=== PATIENT | female | born 1970 | race Caucasian/White ===

== ENCOUNTER 2017-08-04 21:45 | Observation (INO) | payer OTHER ==
[2017-08-04] MEDS ORDERED: morphine CARPU-JECT 2 MG/1 ML DISP.SYRIN IVPUSH ONE (22:05)
[2017-08-04] MEDS ORDERED: ONDANSETRON 4 MG/2 ML VIAL IVPUSH STA (22:06)
--- NOTE | 2017-08-04 22:06 | PDOC ---
History of Present Illness - General History Source: Patient Exam Limitations: No Limitations - History of Present Illness Initial Comments: 08/04/17 22:34 The patient is a 46-year-old female, with a significant past medical history of HTN, who presents to the ED with pain in her left leg today. The patient states that she has chronic pain issues with her legs for which she has gone to her doctor to get X-Rays and cortisone shots with little relief of her symptoms. Today, the patient was walking up the stairs to her apartment on the 3rd floor and during her last few steps she lost her balance, having to forcefully holding on to the banister. Subsequently, the patient felt a pop in her left knee. The pain is a 10/10; she is experiencing pain to move her left leg and knee. The patient denies having any other injuries or symptoms. <Cuca Bonilla - Last Filed: 08/04/17 22:34> - General History Source: Patient <Joey Lynn - Last Filed: 08/05/17 01:42> <Brigette Chatterjee - Last Filed: 08/05/17 03:21> - General Chief Complaint: Pain, Acute Stated Complaint: KNEE PAIN Time Seen by Provider: 08/04/17 21:59 Past History <Cuca Bonilla - Last Filed: 08/04/17 22:34> - Past Medical History Asthma: Yes - Suicide/Smoking/Psychosocial Hx Smoking Status: No Smoking History: Never smoked Number of Cigarettes Smoked Daily: 0 Hx Alcohol Use: No Drug/Substance Use Hx: No <Joey Lynn - Last Filed: 08/05/17 01:42> <Brigette Chatterjee - Last Filed: 08/05/17 03:21> - Past Medical History Allergies/Adverse Reactions: Allergies Allergy/AdvReac Type Severity Reaction Status Date / Time shellfish derived Allergy Verified 08/04/17 22:09 Home Medications: Ambulatory Orders NK [No Known Home Medication] 08/05/17 Review of Systems - Review of Systems Able to Perform ROS?: Yes Comments:: 08/04/17 22:35 CONSTITUTIONAL: Absent: fever, no chills, no fatigue EYES: Absent: visual changes ENT: Absent: ear pain, no sore throat CARDIOVASCULAR: Absent: chest pain, no palpitations RESPIRATORY: Absent: cough, no SOB GI: Absent: abdominal pain, no nausea, no vomiting, no constipation, no diarrhea GENITOURINARY: Absent: dysuria, no frequency, no hematuria MUSKULOSKELETAL: Absent: back pain, no arthralgia EXTREMITIES: Present: (+)Left leg and left knee pain. SKIN: Absent: rash NEURO: Absent: headache <Damaso Bonillaie - Last Filed: 08/04/17 22:34> *Physical Exam - Vital Signs Last Vital Signs Temp Pulse Resp BP Pulse Ox 97.7 F 79 22 117/82 98 08/04/17 22:02 08/04/17 22:02 08/04/17 22:02 08/04/17 22:02 08/04/17 22:02 - Physical Exam Comments: 08/04/17 22:36 GENERAL: Well-appearing, well-nourished. No apparent distress. HEENT: Normocephalic, atraumatic. PERRL, EOM intact. CARDIOVASCULAR: Normal S1, S2. Regular rate and rhythm. PULMONARY: Clear to auscultation bilaterally. ABDOMEN: Soft, non-distended, non-tender. EXTREMITIES: (+)Left knee is slightly tender and more swollen than the right. Decreased range of motion. No joint deformity SKIN: Warm, dry. No rash NEUROLOGICAL: No focal neurological deficits. <Cuca Bonilla - Last Filed: 08/04/17 22:34> - Vital Signs Last Vital Signs Temp Pulse Resp BP Pulse Ox 97.7 F 79 22 117/82 98 08/04/17 22:02 08/04/17 22:02 08/04/17 22:02 08/04/17 22:02 08/04/17 22:02 <Brigette Chatterjee - Last Filed: 08/05/17 03:21> Heart Score/ECG Review - ECG Impressions Comment:: EKG was reviewed by Dr. Lynn at 3:20. Impression: Normal sinus rhythm at 68 bpm. Normal sinus rhythm. Low Voltage QRS. Borderline ECG. <Brigette Chatterjee - Last Filed: 08/05/17 03:21> ED Treatment Course - LABORATORY CBC & Chemistry Diagram: 08/04/17 22:45 08/04/17 22:45 <Joey Lynn - Last Filed: 08/05/17 01:42> - LABORATORY CBC & Chemistry Diagram: 08/04/17 22:45 08/04/17 22:45 - ADDITIONAL ORDERS Additional order review: Laboratory Results 08/04/17 08/04/17 22:45 22:45 Sodium 139 Potassium 3.5 Chloride 103 Carbon Dioxide 24 Anion Gap 12 BUN 24 H Creatinine 0.9 Creat Clearance w eGFR > 60 Random Glucose 104 Calcium 9.4 Magnesium 1.9 Total Bilirubin 0.4 AST 12 L ALT 18 Alkaline Phosphatase 96 Total Protein 7.8 Albumin 3.9 Serum , Qual Negative 08/04/17 22:45 RBC 4.52 MCV 84.1 MCHC 34.4 RDW 13.2 MPV 9.0 Neutrophils % 71.6 Lymphocytes % 20.4 D Monocytes % 5.7 Eosinophils % 1.5 Basophils % 0.8 - Medications Given in the ED: ED Medications Discontinued Medications Generic Name Dose Route Start Last Admin Trade Name Amaury PRN Reason Stop Dose Admin Acetaminophen 650 mg 08/05/17 00:18 08/05/17 00:18 Tylenol Oral Solution - PO 08/05/17 00:19 650 mg NOW ONE Administration Morphine Sulfate 2 mg 08/04/17 22:05 08/04/17 22:39 Morphine Injection - IVPUSH 08/04/17 22:06 2 mg ONCE ONE Administration Morphine Sulfate 6 mg 08/05/17 00:33 08/05/17 00:43 Morphine Injection - IVPUSH 08/05/17 00:34 6 mg ONCE ONE Administration Ondansetron HCl 4 mg 08/04/17 22:06 08/04/17 22:39 Zofran Injection IVPUSH 08/04/17 22:07 4 mg ONCE STA Administration <Brigette Chatterjee - Last Filed: 08/05/17 03:21> Medical Decision Making - Medical Decision Making 08/05/17 01:42 Dr. Lynn: The scribe's documentation has been prepared under my direction and personally reviewed by me in its entirery. I confirm that the note above accurately reflects all work, treatment, procedures, and medical decision making performed by me. patient with intractable knee pain. Pt unable to walk. Will admit for pain control <Joey Lynn - Last Filed: 08/05/17 01:42> *DC/Admit/Observation/Transfer - Attestations Scribe Attestion: 08/04/17 22:37 Documentation prepared by Cuca Bonilla, acting as medical translator for Joey Lynn MD. <Cuca Bonilla - Last Filed: 08/04/17 22:34> - Discharge Dispostion Admit: Yes <Joey Lynn - Last Filed: 08/05/17 01:42> <Brigette Chatterjee - Last Filed: 08/05/17 03:21> Diagnosis at time of Disposition: Intractable pain Knee sprain and strain Qualifiers: Encounter type: subsequent encounter Laterality: left - Discharge Dispostion Condition at time of disposition: Stable
[2017-08-04 22:14] VITALS: BMI 52.1
[2017-08-04] MEDS ORDERED: morphine SULFATE 4 MG/ML VIAL ONE (22:27)
[2017-08-04] MEDS ORDERED: ONDANSETRON 4 MG/2 ML VIAL ONE (22:27)
[2017-08-04 23:13] LABS: BASO % 0.8 % (0-2.0); EOS % 1.5 % (0-4.5); HEMOGLOBIN 13.1 GM/dL (10.7-15.3); LYMPH % 20.4 % (8-40); MCHC 34.4 g/dl (32.0-36.0); MEAN CELL VOLUME 84.1 fl (80-96); MONO % 5.7 % (3.8-10.2); NEUT % 71.6 % (42.8-82.8); PLATELET COUNT 375 K/MM3 (134-434); RBC 4.52 M/mm3 (3.60-5.2); RDW 13.2 % (11.6-15.6); WHITE BLOOD COUNT 13.4 K/mm3 (4.0-10.0)
[2017-08-04 23:26] LABS: ALBUMIN 3.9 g/dl (3.4-5.0); ALK PHOS 96 U/L (45-117); ANION GAP 12 (8-16); BILIRUBIN,TOTAL 0.4 mg/dL (0.2-1.0); BLOOD UREA NITROGEN 24 mg/dL (7-18); CALCIUM 9.4 mg/dL (8.5-10.1); CHLORIDE 103 mmol/L (98-107); CO2 24 mmol/L (21-32); CREATININE 0.9 mg/dL (0.55-1.02); GLUCOSE,RANDOM 104 mg/dL (74-106); MAGNESIUM 1.9 mg/dL (1.8-2.4); POTASSIUM 3.5 mmol/L (3.5-5.1); SGOT/AST 12 U/L (15-37); SGPT/ALT 18 U/L (12-78); SODIUM 139 mmol/L (136-145); TOT PROT 7.8 g/dl (6.4-8.2)
[2017-08-04] MEDS ORDERED: ACETAMINOPHEN 325 MG TABLET (FP) ONE (23:53)
[2017-08-05] MEDS ORDERED: ACETAMINOPHEN 650 MG/20.3 ML ORAL SOLUTION (CUPS) PO ONE (00:18)
[2017-08-05] MEDS ORDERED: morphine CARPU-JECT 2 MG/1 ML DISP.SYRIN IVPUSH ONE (00:33)
[2017-08-05] MEDS ORDERED: morphine SULFATE 4 MG/ML VIAL ONE (00:37)
--- NOTE | 2017-08-05 02:14 | HP ---
CHIEF COMPLAINT: s/p fall, L- Knee Pain PCP: Dr. Sunil Titus HISTORY OF PRESENT ILLNESS: 46 y/o woman PMH HTN, Chronic Pain, L- knee Pain (receives injections), Severe Obesity. Who presents to the ED s/p fall with left knee pain. Patient's daughter at bedside Patient reports recent cortisone injection to her left knee for chronic pain. She reports while going up the stairs she fell onto her knee. Patient reports hearing a "popping sound". Patient reports having increased pain to the patellar with movement. Patient denies LOC, head trauma. Patient denies fever, chills, cough, dizziness, HAQUE, SOB, CP, AP, N/V/D, constipation, dysuria ER course was notable for: (1) Xray L-Knee- neg fx or dislocation (2) CT B/L Knees: mild patellofemoral arthrosis, no acute fracture or dislocation. tiny R- knee effusion, small L- knee effusion (3) WBC 13.4 Recent Travel: None PAST MEDICAL HISTORY: See HPI PAST SURGICAL HISTORY: Childbirth Social History: Smoking: Never Alcohol: None Drugs: None Lives alone Family History: Mother Asthma, age 49 Sister: Lung Disease, Sister: ESRD Allergies shellfish derived Allergy (Verified 08/04/17 22:09) HOME MEDICATIONS: Home Medications Medication Instructions Recorded No Home Medications 0 dose .ROUTE UTDICT 01/11/12 Pantoprazole Sodium [Protonix -] 40 mg PO DAILY #0 tablet.ec 05/17/12 Naproxen [Naprosyn -] 500 mg PO BID #14 tablet 12/27/14 REVIEW OF SYSTEMS CONSTITUTIONAL: Absent: fever, chills, diaphoresis, generalized weakness, malaise, loss of appetite, weight change HEENT: Absent: rhinorrhea, nasal congestion, throat pain, throat swelling, difficulty swallowing, mouth swelling, ear pain, eye pain, visual changes CARDIOVASCULAR: Absent: chest pain, syncope, palpitations, irregular heart rate, lightheadedness , peripheral edema RESPIRATORY: Absent: cough, shortness of breath, dyspnea with exertion, orthopnea, wheezing, stridor, hemoptysis GASTROINTESTINAL: Absent: abdominal pain, abdominal distension, nausea, vomiting, diarrhea, constipation, melena, hematochezia GENITOURINARY: Absent: dysuria, frequency, urgency, hesitancy, hematuria, flank pain, genital pain MUSCULOSKELETAL: myalgia, arthralgia, joint swelling, Absent: back pain, neck pain SKIN: Absent: rash, itching, pallor HEMATOLOGIC/IMMUNOLOGIC: Absent: easy bleeding, easy bruising, lymphadenopathy, frequent infections ENDOCRINE: Absent: unexplained weight gain, unexplained weight loss, heat intolerance, cold intolerance NEUROLOGIC: unsteady gait Absent: headache, focal weakness or paresthesias, dizziness, seizure, mental status changes, bladder or bowel incontinence PSYCHIATRIC: Absent: anxiety, depression, suicidal or homicidal ideation, hallucinations. PHYSICAL EXAMINATION Vital Signs - 24 hr 08/04/17 22:02 Temperature 97.7 F Pulse Rate 79 Respiratory 22 Rate Blood Pressure 117/82 O2 Sat by Pulse 98 Oximetry (%) GENERAL: Severely Obese, awake, alert, and fully oriented, in mild distress. HEAD: Normal with no signs of trauma. EYES: Pupils equal, round and reactive to light, extraocular movements intact, sclera anicteric, conjunctiva clear. No lid lag. EARS, NOSE, THROAT: Ears normal, nares patent, oropharynx clear without exudates. Moist mucous membranes. NECK: Normal range of motion, supple without lymphadenopathy, JVD, or masses. LUNGS: Breath sounds equal, clear to auscultation bilaterally. No wheezes, and no crackles. No accessory muscle use. HEART: Regular rate and rhythm, normal S1 and S2 without murmur, rub or gallop. ABDOMEN: Soft, nontender, not distended, normoactive bowel sounds, no guarding, no rebound, no masses. No hepatomegaly or splenomegaly. MUSCULOSKELETAL:+tenderness, swelling to L- patella. LROM LLE. Normal range of motion LUE, RUE, RLE joints. No bony deformities, No CVA tenderness. UPPER EXTREMITIES: 2+ pulses, warm, well-perfused. No cyanosis. No clubbing. No peripheral edema. LOWER EXTREMITIES: 2+ pulses, warm, well-perfused. No calf tenderness. No peripheral edema. NEUROLOGICAL: Cranial nerves II-XII intact. Normal speech. Gait not observed PSYCHIATRIC: Cooperative. Good eye contact. Appropriate mood and affect. SKIN: Warm, dry, normal turgor, no rashes or lesions noted, normal capillary refill. Laboratory Results - last 24 hr 08/04/17 08/04/17 08/04/17 22:45 22:45 22:45 WBC 13.4 H D RBC 4.52 Hgb 13.1 Hct 38.0 MCV 84.1 MCH 29.0 MCHC 34.4 RDW 13.2 Plt Count 375 MPV 9.0 Neutrophils % 71.6 Lymphocytes % 20.4 D Monocytes % 5.7 Eosinophils % 1.5 Basophils % 0.8 Sodium 139 Potassium 3.5 Chloride 103 Carbon Dioxide 24 Anion Gap 12 BUN 24 H Creatinine 0.9 Creat Clearance w eGFR > 60 Random Glucose 104 Calcium 9.4 Magnesium 1.9 Total Bilirubin 0.4 AST 12 L ALT 18 Alkaline Phosphatase 96 Total Protein 7.8 Albumin 3.9 Serum , Qual Negative ASSESSMENT/PLAN: 46 y/o woman PMH of HTN, Chronic Pain, Severe Obesity. Placed in Observation for Intractable L-Knee Pain Plan: 1. Ortho: Left Knee Pain/Swelling - s/p fall - Xray read no acute fx, dislocation - Appreciate Ortho Consult - Pain Mgmt - knee immobilizer - Elevate extremity - Ice q20min on/off - PT - Social Work consult- pt lives in 3rd floor walkup- non-weight bearing - Consider STR 2. Leukocytosis - Likely secondary to inflammatory response, low suspicion of infection - Pt is afebrile, does not appear toxic 3. Hypertension - stable - Continue home med - Monitor renal function 4. Severe Obesity - Carb Control - FU with Endocrinogy/RD outpatient 5. DVT ppx - SCDs - Consider AC if LOS > 48 hrs Code Status: Full Code Dispo: Observation Problem List - Problem (1) Intractable pain Code(s): R52 - PAIN, UNSPECIFIED (2) Knee sprain and strain Code(s): S83.90XA - SPRAIN OF UNSPECIFIED SITE OF UNSPECIFIED KNEE, INIT ENCNTR Qualifiers: Encounter type: subsequent encounter Laterality: left (3) Severe obesity (BMI >= 40) Code(s): E66.01 - MORBID (SEVERE) OBESITY DUE TO EXCESS CALORIES (4) HTN (hypertension) Code(s): I10 - ESSENTIAL (PRIMARY) HYPERTENSION (5) DVT prophylaxis Code(s): IUX9025 - Visit type - Emergency Visit Emergency Visit: Yes ED Registration Date: 08/04/17 Care time: The patient presented to the Emergency Department on the above date and was hospitalized for further evaluation of their emergent condition. - New Patient This patient is new to me today: Yes Date on this admission: 08/05/17 - Critical Care Critical Care patient: No Hospitalist Screening - Colonoscopy Questionnaire Colonoscopy Questionnaire: Colonoscopy Questionnaire - Patient: 50 - 75 years old and never had a screening colonoscopy: No History of colon or rectal polyps, or CA: No History of IBD, Crohn's disease or UC: No History of abdominal radiation therapy as a child: No - Relative: 1 with colon or rectal CA, or polyps at age 60 or younger: No Colon or rectal CA diagnosed at age 45 or younger: No Multiple relatives with colon or rectal CA: No - Outcome: Screening Result: Negative Screen
[2017-08-05] MEDS: KETOROLAC TROMETHAMINE 30 MG/1 ML VIAL IVPUSH PRN ×2 (02:58→09:11)
[2017-08-05 06:55] VITALS: BP 105/62; PULSE 74; TEMP 98.4
[2017-08-05] MEDS ORDERED: ONDANSETRON 4 MG/2 ML VIAL IVPUSH PRN (08:48)
[2017-08-05] MEDS ORDERED: ONDANSETRON 4 MG/2 ML VIAL ONE (09:15)
[2017-08-05 09:46] LABS: BASO % 1.1 % (0-2.0); EOS % 0.9 % (0-4.5); HEMATOCRIT 35.6 % (32.4-45.2); LYMPH % 20.7 % (8-40); MCH 28.4 pg (25.7-33.7); MCHC 33.8 g/dl (32.0-36.0); MEAN PLT VOLUME 8.6 fl (7.5-11.1); MONO % 5.1 % (3.8-10.2); NEUT % 72.2 % (42.8-82.8); PLATELET COUNT 357 K/MM3 (134-434); RBC 4.24 M/mm3 (3.60-5.2); RDW 13.5 % (11.6-15.6); WHITE BLOOD COUNT 11.1 K/mm3 (4.0-10.0)
[2017-08-05] MEDS ORDERED: LISINOPRIL 20 MG TABLET (FP) PO SCH (10:00)
[2017-08-05] MEDS ORDERED: HYDROCHLOROTHIAZIDE 25 MG TABLET (FP) PO SCH ×2 (10:00)
[2017-08-05 10:13] LABS: ANION GAP 6 (8-16); BLOOD UREA NITROGEN 25 mg/dL (7-18); CALCIUM 8.9 mg/dL (8.5-10.1); CHLORIDE 106 mmol/L (98-107); CO2 27 mmol/L (21-32); CREATININE 0.8 mg/dL (0.55-1.02); GLUCOSE,RANDOM 114 mg/dL (74-106); POTASSIUM 4.1 mmol/L (3.5-5.1); SODIUM 139 mmol/L (136-145)
[2017-08-05] MEDS ORDERED: PANTOPRAZOLE 40 MG TABLET (FP) PO SCH (10:15)
[2017-08-05] MEDS ORDERED: PANTOPRAZOLE 40 MG TABLET (FP) ONE (10:22)
--- NOTE | 2017-08-05 11:22 | EKG ---
Test Reason : Blood Pressure : / mmHG Vent. Rate : 068 BPM Atrial Rate : 068 BPM P-R Int : 132 ms QRS Dur : 076 ms QT Int : 388 ms P-R-T Axes : -05 058 041 degrees QTc Int : 412 ms NORMAL SINUS RHYTHM LOW VOLTAGE QRS BORDERLINE ECG WHEN COMPARED WITH ECG OF 12-MAY-2012 09:31, NO SIGNIFICANT CHANGE WAS FOUND Confirmed by ED STODDARD MD ([id number]) on 08/05/2017 11:21:50 AM Referred By: Confirmed By:ED STODDARD MD
--- NOTE | 2017-08-05 11:45 | CON.ORTH ---
Consult Reason for Consultation:: left knee pain - Past Medical History ...LMP: 04/23/12 - Alcohol/Substance Use Hx Alcohol Use: No - Smoking History Smoking history: Never smoked Have you smoked in the past 12 months: No Aproximately how many cigarettes per day: 0 Home Medications - Allergies Allergies/Adverse Reactions: Allergies Allergy/AdvReac Type Severity Reaction Status Date / Time shellfish derived Allergy Verified 08/04/17 22:09 - Home Medications Home Medications: Ambulatory Orders Hydrochlorothiazide [Hctz -] 25 mg PO DAILY 08/05/17 Lisinopril [Prinivil -] 40 mg PO DAILY 08/05/17 Physical Exam for Ortho Vital Signs: Vital Signs Temperature 98.4 F 08/05/17 06:54 Pulse Rate 74 08/05/17 06:54 Respiratory Rate 18 08/05/17 06:54 Blood Pressure 105/62 08/05/17 06:54 O2 Sat by Pulse Oximetry (%) 98 08/05/17 06:54 Labs: CBC, BMP 08/05/17 09:36 08/05/17 09:36 - Lower Extremity Knee: Yes: Left, Limited ROM, Pain, Other (+ ttp, ROm 0-50, able to SLR, nvi) Imaging - Results X-ray: Report Reviewed, Image Reviewed Cat Scan: Report Reviewed, Image Reviewed Assessment/Plan 46 y/o woman PMH HTN,morbid obesity c/o L- knee Pain for the past 3 weeks. Presented to the ED s/p fall with left knee pain. Patient's daughter at bedside Patient reports recent cortisone injection to her left knee for chronic pain. She reports while going up the stairs she fell onto her knee. Patient reports hearing a "popping sound". Patient had cortisone injection done 1 day ago. a/p left knee djd- no fx/dislocations Cortisone injection takes 3-4 days to take effect, sometimes pain can be worse for first few days wbat with knee immobilizer in place PT eval ice, elevation pain control nothing further to do d/w Dr. Vera
--- NOTE | 2017-08-05 13:35 | DS ---
Physical Examination Vital Signs: Vital Signs Temperature 98.4 F 08/05/17 06:54 Pulse Rate 74 08/05/17 06:54 Respiratory Rate 18 08/05/17 06:54 Blood Pressure 105/62 08/05/17 06:54 O2 Sat by Pulse Oximetry (%) 98 08/05/17 06:54 Labs: CBC, BMP 08/05/17 09:36 08/05/17 09:36 Discharge Summary Reason For Visit: INTRACTABLE PAIN/SPRAIN OF KNEE Current Active Problems DVT prophylaxis (Acute) HTN (hypertension) (Acute) Intractable pain (Acute) Knee sprain and strain (Acute) Severe obesity (BMI >= 40) (Acute) Condition: Stable - Instructions Referrals: Ad Titus MD [Primary Care Provider] - - Home Medications Comprehensive Discharge Medication List: Ambulatory Orders Hydrochlorothiazide [Hctz -] 25 mg PO DAILY 08/05/17 Lisinopril [Prinivil -] 40 mg PO DAILY 08/05/17
[2017-08-05] MEDS ORDERED: oxyCODONE HCL 5 MG TABLET PO PRN (13:37)
[2017-08-05] MEDS ORDERED: oxyCODONE HCL 5 MG TABLET ONE (14:02)
== END 2017-08-05 16:15 ==
LOC: JER 21:45 → JERBED 08-05 01:41 → INTOOBSV 08-05 01:41 → JERBED 08-05 01:47 → UNDOADMIN 08-05 01:47
PROVIDERS: ADMIT Internal Medicine; ATTEND Internal Medicine
PROC: 2W3RX1Z Immobilization of Left Lower Leg using Splint (ICD-10-PCS; principal; 2017-08-05)
DX: S83.8X2A Sprain of other specified parts of left knee, initial encounter (principal); W10.8XXA Fall (on) (from) other stairs and steps, initial encounter; Y93.89 Activity, other specified; Y92.038 Other place in apartment as the place of occurrence of the external cause; I10 Essential (primary) hypertension; E66.01 Morbid (severe) obesity due to excess calories; Z68.43 Body mass index [BMI] 50.0-59.9, adult; M25.562 Pain in left knee; G89.29 Other chronic pain; D72.829 Elevated white blood cell count, unspecified; Z91.013 Allergy to seafood
CPT/HCPCS: 29515; 36415; 71045-TC-FY; 73560-TC-LT-FY; 73700-TC-RT; 76700-TC; 80048; 80053; 83735; 84703; 85025; 93005; 93010; 97116-GP; 97161-GP; 99285-25; G0378

== ENCOUNTER 2018-06-14 09:13 | Inpatient (IN) | payer OTHER ==
--- NOTE | 2018-06-14 10:34 | PDOC ---
History of Present Illness - General History Source: Patient Exam Limitations: No Limitations - History of Present Illness Initial Comments: 06/14/18 10:46 The patient is a 47-year-old female, with a past medical history of HTN, chronic left knee pain (receives injections), severe obesity, who presents to the ED with 2 weeks of RT knee pain. Patient states that her pain worsened today after her knee gave out and she heard a popping sound. She reports that the pain radiates up her thigh. She denies any direct trauma to the knee. The patient was seen in the ED last year for LT knee pain and followed up with Dr. Vera who administered a cortisone injection. She denies any back pain. The patient denies any fevers, chills, nausea, vomiting, diarrhea, or abdominal pain. Denies any chest pain or shortness of breath. Allergies: Shellfish derived. Social History: None reported. Surgical History: None reported. PCP: Dr. Ad Titus <Cuca Bonilla - Last Filed: 06/14/18 10:51> - General History Source: Patient Exam Limitations: No Limitations <Dominga De La Cruz - Last Filed: 06/14/18 12:47> - General Chief Complaint: Pain, Acute Stated Complaint: KNEE PAIN Past History <Cuca Bonilla - Last Filed: 06/14/18 10:51> - Past Medical History Asthma: Yes COPD: No HTN: Yes - Surgical History Appendectomy: No Cholecystectomy: No - Immunization History Immunization Up to Date: No - Suicide/Smoking/Psychosocial Hx Smoking Status: No Smoking History: Current every day smoker Have you smoked in the past 12 months: No Number of Cigarettes Smoked Daily: 0 Information on smoking cessation initiated: No Hx Alcohol Use: No Drug/Substance Use Hx: No Substance Use Type: None <Dominga De La Cruz - Last Filed: 06/14/18 12:47> - Past Medical History Allergies/Adverse Reactions: Allergies Allergy/AdvReac Type Severity Reaction Status Date / Time shellfish derived Allergy Verified 06/14/18 09:25 Home Medications: Ambulatory Orders Hydrochlorothiazide [Hctz -] 25 mg PO DAILY 08/05/17 Lisinopril [Prinivil -] 40 mg PO DAILY 08/05/17 Oxycodone HCl 10 mg PO Q6H PRN #30 tablet MDD 4 08/05/17 Ibuprofen [Ibu] 800 mg PO ASDIR 06/14/18 Review of Systems - Review of Systems Able to Perform ROS?: Yes Comments:: 06/14/18 10:46 GENERAL/CONSTITUTIONAL: No fever or chills. No weakness. HEAD, EYES, EARS, NOSE AND THROAT: No change in vision. No ear pain or discharge. No sore throat. CARDIOVASCULAR: No chest pain or shortness of breath. RESPIRATORY: No cough, wheezing, or hemoptysis. GASTROINTESTINAL: No nausea, vomiting, diarrhea or constipation. GENITOURINARY: No dysuria, frequency, or change in urination. MUSCULOSKELETAL: (+)RT knee pain. No joint swelling or pain. No neck or back pain. SKIN: No rash NEUROLOGIC: No headache, vertigo, loss of consciousness, or change in strength/ sensation. ENDOCRINE: No increased thirst. No abnormal weight change. HEMATOLOGIC/LYMPHATIC: No anemia, easy bleeding, or history of blood clots. ALLERGIC/IMMUNOLOGIC: No hives or skin allergy. <Cuca Bonilla - Last Filed: 06/14/18 10:51> *Physical Exam - Vital Signs Last Vital Signs Temp Pulse Resp BP Pulse Ox 97.9 F 90 16 138/62 100 06/14/18 09:20 06/14/18 09:20 06/14/18 09:20 06/14/18 09:20 06/14/18 09:20 - Physical Exam Comments: 06/14/18 10:47 GENERAL: (+)Obese. Awake, alert, and fully oriented, in no acute distress HEAD: No signs of trauma EYES: PERRLA, EOMI, sclera anicteric, conjunctiva clear ENT: Auricles normal inspection, nares patent, oropharynx clear without exudates. Moist mucosa. NECK: Normal ROM, supple, no lymphadenopathy, JVD, or masses LUNGS: Breath sounds equal, clear to auscultation bilaterally. No wheezes, and no crackles HEART: Regular rate and rhythm, normal S1 and S2, no murmurs, rubs or gallops ABDOMEN: Soft, nontender, normoactive bowel sounds. No guarding, no rebound. No masses EXTREMITIES: (+)Tenderness to the medial side of the right knee, pain with flexion of the knee, patient can flex to about 45 degrees. No laxity noted, no effusion. Full range of motion of right hip. No edema. No clubbing or cyanosis. No cords, erythema. NEUROLOGICAL: Alert and oriented x 3. Face is symmetric. SKIN: Warm, Dry, normal turgor, no rashes or lesions noted <Cuca Bonilla - Last Filed: 06/14/18 10:51> - Vital Signs Last Vital Signs Temp Pulse Resp BP Pulse Ox 97.9 F 90 16 138/62 100 06/14/18 09:20 06/14/18 09:20 06/14/18 09:20 06/14/18 09:20 06/14/18 09:20 <Dominga De La Cruz - Last Filed: 06/14/18 12:47> Moderate Sedation - Procedure Monitoring Vital Signs: Procedure Monitoring Vital Signs Temperature 97.9 F 06/14/18 09:20 Pulse Rate 90 06/14/18 09:20 Respiratory Rate 16 06/14/18 09:20 Blood Pressure 138/62 06/14/18 09:20 O2 Sat by Pulse Oximetry (%) 100 06/14/18 09:20 <Cuca Bonilla - Last Filed: 06/14/18 10:51> - Procedure Monitoring Vital Signs: Procedure Monitoring Vital Signs Temperature 97.9 F 06/14/18 09:20 Pulse Rate 90 06/14/18 09:20 Respiratory Rate 16 06/14/18 09:20 Blood Pressure 138/62 06/14/18 09:20 O2 Sat by Pulse Oximetry (%) 100 06/14/18 09:20 <Dominga De La Cruz - Last Filed: 06/14/18 12:47> Medical Decision Making - Medical Decision Making 06/14/18 10:33 47 yo F with c/o right knee . no injury but felt it gave out today. pain radiating up to thigh denies back pain. no ankle or hip pain. plan anjali dawn dc with crutches immobilizer and fu ortho. 06/14/18 12:45 X-rays are negative for any acute injury. We'll discharge patient with crutches and a knee immobilizer was given Toradol for pain here in the follow-up with orthopedic referral for Dr. Villegas in length patient also follow-up with orthopedist and she is seen in the past <Dominga De La Cruz - Last Filed: 06/14/18 12:47> *DC/Admit/Observation/Transfer - Attestations Scribe Attestion: 06/14/18 10:48 Documentation prepared by Cuca Bonilla, acting as certified medical records coder for Dominga De La Cruz MD. <Cuca Bonilla - Last Filed: 06/14/18 10:51> <Dominga De La Cruz - Last Filed: 06/14/18 12:47> Diagnosis at time of Disposition: Knee injury - Discharge Dispostion Disposition: HOME - Referrals Referrals: Ad Titus MD [Primary Care Provider] - Carlton Villegas MD [Staff Physician] - - Patient Instructions Printed Discharge Instructions: Knee Sprain Additional Instructions: Can take ibuprofen 600 mg as needed every 8 hours for your pain. Take with food. He can also take Tylenol 500 mg every 6 hours as needed follow-up with orthopedist he can see the orthopedist cc in the past or he may follow-up with Dr. Bakari Giles please see the referral information should call to schedule appointment to be seen within the next 2 weeks he can wear the knee immobilizer for comfort use crutches as needed - Post Discharge Activity
[2018-06-14] MEDS ORDERED: KETOROLAC TROMETHAMINE 15 MG/ML VIAL IM ONE (10:36)
[2018-06-14] MEDS ORDERED: KETOROLAC TROMETHAMINE 30 MG/1 ML VIAL ONE (12:05)
[2018-06-14] MEDS ORDERED: morphine CARPU-JECT 4 MG/1 ML DISP.SYRIN IVPUSH ONE (13:22)
--- NOTE | 2018-06-14 13:29 | PDOC ---
*Physical Exam - Vital Signs Last Vital Signs Temp Pulse Resp BP Pulse Ox 97.9 F 90 16 138/62 100 06/14/18 09:20 06/14/18 09:20 06/14/18 09:20 06/14/18 09:20 06/14/18 09:20 - Physical Exam General Appearance: Yes: Nourished Respiratory/Chest: positive: Lungs Clear, Normal Breath Sounds Cardiovascular: positive: Regular Rhythm, Regular Rate, S1, S2 Musculoskeletal: positive: Other (right knee ttp medially, pain on flexion. ) ED Treatment Course - ADDITIONAL ORDERS Additional order review: Laboratory Results 06/14/18 11:46 Urine HCG, Qual Negative - RADIOLOGY Radiology Studies Ordered: Category Date Time Status KNEE 3 POS-RIGHT [RAD] Stat Radiology 06/14/18 10:49 Completed - Medications Given in the ED: ED Medications Discontinued Medications Generic Name Dose Route Start Last Admin Trade Name Freq PRN Reason Stop Dose Admin Ketorolac Tromethamine 30 mg 06/14/18 10:36 06/14/18 12:08 Toradol Injection - IM 06/14/18 10:37 30 mg ONCE ONE Administration Medical Decision Making - Medical Decision Making 06/14/18 13:29 pt can not walk due to prior knee injury and will be admitted. *DC/Admit/Observation/Transfer Diagnosis at time of Disposition: Knee injury - Discharge Dispostion Decision to Admit order: Yes - Referrals Referrals: Ad Titus MD [Primary Care Provider] - Carlton Villegas MD [Staff Physician] - - Patient Instructions Printed Discharge Instructions: Knee Sprain Additional Instructions: Can take ibuprofen 600 mg as needed every 8 hours for your pain. Take with food. He can also take Tylenol 500 mg every 6 hours as needed follow-up with orthopedist he can see the orthopedist cc in the past or he may follow-up with Dr. Bakari Giles please see the referral information should call to schedule appointment to be seen within the next 2 weeks he can wear the knee immobilizer for comfort use crutches as needed - Post Discharge Activity
[2018-06-14] MEDS ORDERED: morphine SULFATE 4 MG/ML VIAL ONE (13:36)
--- NOTE | 2018-06-14 13:57 | HP ---
Admitting History and Physical - Primary Care Physician PCP: Ad Titus M - Admission Chief Complaint: rt knee pain History of Present Illness: ER HISTORY 06/14/18 10:46 The patient is a 47-year-old female, with a past medical history of HTN, chronic left knee pain (receives injections), severe obesity, who presents to the ED with 2 weeks of RT knee pain. Patient states that her pain worsened today after her knee gave out and she heard a popping sound. She reports that the pain radiates up her thigh. She denies any direct trauma to the knee. The patient was seen in the ED last year for LT knee pain and followed up with Dr. Vera who administered a cortisone injection. She denies any back pain. The patient denies any fevers, chills, nausea, vomiting, diarrhea, or abdominal pain. Denies any chest pain or shortness of breath. Allergies: Shellfish derived. Social History: None reported. Surgical History: None reported. PCP: Dr. Ad Titus Pt examined by me in the ER Family at bedside Pt c/o 3 days h/o rt knee warmth and pain , worse today after she heard a popping sound in rt knee when she was climbing the stairs Denies fall She has h/o chronic left knee pain and was advised to lose weight Rt knee pain is radiating the rt hip History Source: Patient, Family Member Limitations to Obtaining History: No Limitations - Past Medical History Cardiovascular: Yes: HTN, Other (morbid obesity) ...LMP: 04/23/12 - Smoking History Smoking history: Current every day smoker Have you smoked in the past 12 months: No Aproximately how many cigarettes per day: 0 - Alcohol/Substance Use Hx Alcohol Use: No Home Medications - Allergies Allergies/Adverse Reactions: Allergies Allergy/AdvReac Type Severity Reaction Status Date / Time shellfish derived Allergy Verified 06/14/18 09:25 - Home Medications Home Medications: Ambulatory Orders Hydrochlorothiazide [Hctz -] 25 mg PO DAILY 08/05/17 Lisinopril [Prinivil -] 40 mg PO DAILY 08/05/17 Oxycodone HCl 10 mg PO Q6H PRN #30 tablet MDD 4 08/05/17 Ibuprofen [Ibu] 800 mg PO ASDIR 06/14/18 Review of Systems - Review of Systems Constitutional: denies: Chills, Lethargy, Loss of Appetite, Night Sweats, Weakness Musculoskeletal: reports: Joint Pain Physical Examination Vital Signs: Vital Signs Temperature 97.9 F 06/14/18 09:20 Pulse Rate 90 06/14/18 09:20 Respiratory Rate 16 06/14/18 09:20 Blood Pressure 138/62 06/14/18 09:20 O2 Sat by Pulse Oximetry (%) 100 06/14/18 09:20 Constitutional: Yes: Moderate Distress, Obese Cardiovascular: Yes: Regular Rate and Rhythm Respiratory: Yes: CTA Bilaterally Gastrointestinal: Yes: Normal Bowel Sounds, Soft, Abdomen, Obese. No: Distention, Tenderness Extremities: Yes: Other (tender lateral aspect of right knee, unable to flex knee, tender posterior knee) Edema: Yes Edema: RLE: Trace Psychiatric: Yes: Alert, Oriented Labs: Laboratory Results - last 24 hr 06/14/18 11:46 Urine HCG, Qual Negative Imaging - Results X-ray: Image Reviewed Problem List - Problems (1) Knee injury Code(s): S89.90XA - UNSPECIFIED INJURY OF UNSPECIFIED LOWER LEG, INIT ENCNTR (2) DVT prophylaxis Code(s): [id number] - (3) Intractable pain Code(s): R52 - PAIN, UNSPECIFIED (4) Knee sprain and strain Code(s): S83.90XA - SPRAIN OF UNSPECIFIED SITE OF UNSPECIFIED KNEE, INIT ENCNTR Qualifiers: Encounter type: subsequent encounter Laterality: left (5) Severe obesity (BMI >= 40) Code(s): E66.01 - MORBID (SEVERE) OBESITY DUE TO EXCESS CALORIES Assessment/Plan PLAN Pain control-- morphine prn Ortho eval-- pt requested another Orthopedic surgeon - will consult Dr Anderson check sono leg- slightly swollen Xray noted continue with meds for HTN DVT prophylaxis-- Lovenox sc PT eval pt will need STR
[2018-06-14 14:21] LABS: BASO % 0.9 % (0-2.0); HEMATOCRIT 37.9 % (32.4-45.2); HEMOGLOBIN 13.4 GM/dL (10.7-15.3); LYMPH % 20.5 % (8-40); MCH 29.9 pg (25.7-33.7); MCHC 35.4 g/dl (32.0-36.0); MEAN CELL VOLUME 84.6 fl (80-96); MEAN PLT VOLUME 8.8 fl (7.5-11.1); MONO % 6.1 % (3.8-10.2); NEUT % 71.5 % (42.8-82.8); PLATELET COUNT 372 K/MM3 (134-434); RBC 4.48 M/mm3 (3.60-5.2); RDW 13.2 % (11.6-15.6); WHITE BLOOD COUNT 11.7 K/mm3 (4.0-10.0)
[2018-06-14 14:46] LABS: ALK PHOS 88 U/L (45-117); ANION GAP 9 MMOL/L (8-16); BILIRUBIN,TOTAL 0.6 mg/dL (0.2-1); BLOOD UREA NITROGEN 24 mg/dL (7-18); CALCIUM 9.3 mg/dL (8.5-10.1); CHLORIDE 104 mmol/L (98-107); CO2 24 mmol/L (21-32); CREATININE 0.8 mg/dL (0.55-1.3); GLUCOSE,RANDOM 97 mg/dL (74-106); POTASSIUM 3.6 mmol/L (3.5-5.1); SGOT/AST 15 U/L (15-37); SGPT/ALT 22 U/L (13-61); SODIUM 137 mmol/L (136-145); TOT PROT 7.4 g/dl (6.4-8.2)
[2018-06-14] MEDS: MORPHINE SULFATE 2 MG/ML VIAL IVPUSH PRN ×2 (15:53→20:46)
[2018-06-14 16:51] VITALS: BMI 47.7
[2018-06-14] MEDS: POLYETHYLENE GLYCOL 3350 119 GM BTL PO PRN (18:19)
[2018-06-14] MEDS: FAMOTIDINE 20 MG/50 ML IVPB 20 MG/50 ML MG IVPB SCH (18:32)
[2018-06-14] MEDS: MAG HYDROX/AL HYDROX/SIMETH 30 ML UNIT-DOSE CUP PO PRN (18:32)
--- NOTE | 2018-06-14 19:31 | CONSULT ---
Consult - text type - Consultation Consultation Note: ORTHOPEDIC SURGERY CONSULTATION NOTE Department of Orthopedic Surgery HISTORY OF PRESENT ILLNESS Ms. Gonzales is a 47 year old female with a past medical history of HTN, chronic left knee pain (receives injections), severe obesity, who is complaining of right knee pain. Patient states that her pain worsened today after her knee gave out and she heard a popping sound. The orthopedic service was consulted for right knee pain. The patient states she was not having any pain in her right knee before the injury. The patient notes pain the anterior aspect as well as the posterolateral aspect of her knee, which radiates into her thigh. Denies any other injuries. Denies numbness, tingling or other constitutional complaints. Denies/Endorses tobacco use, drug use, alcohol abuse. The patient lives with family and uses no assistive devices at baseline. FAMILY HISTORY na REVIEW OF SYMPTOMS A twelve-point review of systems was performed and was negative except as noted in HPI. PHYSICAL EXAM Constitutional: Alert and oriented to person, place, and time. Appears well- developed and well-nourished. No acute distress, appropriate mood and affect. Obese. Right Upper Extremity: Skin warm, dry, and intact; no lesions, rashes or ulcers noted. Muscle mass equal and symmetric to contralateral side. No atrophy noted. No masses or effusions noted. No tenderness to palpation all joints; nontender throughout rest of extremity. Full passive and active ROM, free from pain. Joints stable with no pathologic laxity. M/R/U/MSK/AX motor intact; SILT distally; 2+ radial pulses; Cap refill brisk. Tone and reflexes normal. Left Upper Extremity: Skin warm, dry, and intact; no lesions, rashes or ulcers noted. Muscle mass equal and symmetric to contralateral side. No atrophy noted. No masses or effusions noted. No tenderness to palpation all joints; nontender throughout rest of extremity. Full passive and active ROM, free from pain. Joints stable with no pathologic laxity. M/R/U/MSK/AX motor intact; SILT distally; 2+ radial pulses; Cap refill brisk. Tone and reflexes normal. Right Lower Extremity: Skin warm, dry, and intact; no lesions, rashes or ulcers noted. There is a mild effusion on physical exam. Muscle mass equal and symmetric to contralateral side. No atrophy noted. No masses noted. Tender to palpation at the anterior aspect of her knee, patella tendon, medial and lateral joint line, as well as over the MPFL; she is nontender throughout rest of extremity. No cords or calf tenderness No significant calf/ankle edema. LROM 0-100 secondary to pain in her knee; FROM of her ankle and hip joints; free from pain. Joints stable with no pathologic laxity. EHL/TA/GS motor intact; SILT distally; 2+ DP pulses; Cap refill brisk. Tone and reflexes normal. Left Lower Extremity: Skin warm, dry, and intact; no lesions, rashes or ulcers noted. Muscle mass equal and symmetric to contralateral side. No atrophy noted. No masses or effusions noted. Tender to palpation in the medial aspect of her joint line; nontender throughout rest of extremity. No cords or calf tenderness No significant calf/ankle edema. Full passive and active ROM, free from pain. Joints stable with no pathologic laxity. EHL/TA/GS motor intact; SILT distally; 2+ DP pulses; Cap refill brisk. Tone and reflexes normal. Active Problems Problem Status Category Onset Knee injury Acute Medical Past Medical History Cardio/Vascular HTN,Other Social History Smoking history Never smoked Aproximately how many 0 cigarettes per day Hx Alcohol Use No Allergies Allergy/AdvReac Type Severity Reaction Status Date / Time shellfish derived Allergy Verified 06/14/18 09:25 Active Medications Generic Name Dose Route Start Last Admin Trade Name Freq PRN Reason Stop Dose Admin Al Hydroxide/Mg Hydroxide 30 ml 06/14/18 18:24 06/14/18 18:32 Mylanta Oral Suspension - PO 30 ml Q6H PRN Administration DYSPEPSIA Enoxaparin Sodium 40 mg 06/15/18 10:00 Lovenox - SQ DAILY [facility] Hydrochlorothiazide 25 mg 06/15/18 10:00 Hctz - PO DAILY [facility] Famotidine/Sodium Chloride 20 mg in 50 mls @ 100 mls/hr 06/14/18 18:30 18:32 Pepcid 20 Mg Premixed Ivpb - IVPB 100 mls/hr DAILY [facility] Administration Lisinopril 40 mg 06/15/18 10:00 Prinivil PO DAILY [facility] Morphine Sulfate 2 mg 06/14/18 13:54 06/14/18 15:53 Morphine Sulfate IVPUSH 2 mg Q4H PRN Administration PAIN LEVEL 6-10 Oxycodone HCl 10 mg 06/14/18 13:53 Roxicodone - PO Q6H PRN PAIN LEVEL 4-6 Polyethylene Glycol 17 gm 06/14/18 13:56 06/14/18 18:19 Miralax (For Daily Use) - PO 17 gm DAILY PRN Administration CONSTIPATION Vital Signs (last) Temp Pulse Resp BP Pulse Ox 97.9 F 73 20 101/51 L 99 06/14/18 19:14 06/14/18 19:14 06/14/18 19:14 06/14/18 19:14 06/14/18 16:25 Intake and Output 06/12/18 06/13/18 06/14/18 23:59 23:59 23:59 Other: Voiding Method Toilet Bowel Movement No Weight 261 lb Height 5 ft 2 in Body Mass Index (BMI) 47.7 Weight Measurement Method Patient Lift Scale Laboratory 06/14/18 13:51 06/14/18 13:51 IMAGING I personally reviewed all radiographs of the patient's right knee. They demonstrate no fracture, dislocation, or bony lesions. ASSESSMENT AND PLAN Ms. Gonzales is a 47 year old female presenting status post "feeling a pop" in her knee with right sided knee pain. We have reviewed the imaging and clinical findings in detail, as well as their potential implications. After appropriate informed discussion, the patient was placed in a knee immobilizer. Plan: - Pain control - DVT prophylaxis - WBAT on right lower extremity - Physical therapy - Recommend MRI of the Right knee to rule out ligamentous MPFL tear versus meniscus tear - Rest/Ice/Elevate right knee. All questions were answered. Thank you for involving our team in the care of this patient. Please have patient follow up in our office in 1-2 weeks [phone].
[2018-06-15] MEDS: MORPHINE SULFATE 2 MG/ML VIAL IVPUSH PRN ×2 (05:38→11:22)
[2018-06-15 07:01] LABS: BASO % 0.7 % (0-2.0); HEMATOCRIT 35.1 % (32.4-45.2); HEMOGLOBIN 12.1 GM/dL (10.7-15.3); LYMPH % 31.7 % (8-40); MCHC 34.4 g/dl (32.0-36.0); MEAN CELL VOLUME 84.2 fl (80-96); MEAN PLT VOLUME 8.7 fl (7.5-11.1); MONO % 7.3 % (3.8-10.2); NEUT % 58.3 % (42.8-82.8); PLATELET COUNT 330 K/MM3 (134-434); RBC 4.17 M/mm3 (3.60-5.2); RDW 13.4 % (11.6-15.6); WHITE BLOOD COUNT 9.5 K/mm3 (4.0-10.0)
[2018-06-15 07:47] LABS: ALBUMIN 3.6 g/dl (3.4-5.0); ALK PHOS 79 U/L (45-117); ANION GAP 9 MMOL/L (8-16); BILIRUBIN,TOTAL 0.4 mg/dL (0.2-1); BLOOD UREA NITROGEN 28 mg/dL (7-18); CALCIUM 9.1 mg/dL (8.5-10.1); CHLORIDE 103 mmol/L (98-107); CO2 27 mmol/L (21-32); GLUCOSE,RANDOM 105 mg/dL (74-106); POTASSIUM 3.8 mmol/L (3.5-5.1); SGOT/AST 11 U/L (15-37); SGPT/ALT 21 U/L (13-61); SODIUM 138 mmol/L (136-145); TOT PROT 6.7 g/dl (6.4-8.2)
[2018-06-15] MEDS: HYDROCHLOROTHIAZIDE 25 MG TABLET (FP) PO SCH (09:45)
[2018-06-15] MEDS: MAG HYDROX/AL HYDROX/SIMETH 30 ML UNIT-DOSE CUP PO PRN (09:45)
[2018-06-15] MEDS: ONDANSETRON 4 MG/2 ML VIAL IVPUSH PRN (09:46)
[2018-06-15] MEDS: LISINOPRIL 20 MG TABLET (FP) PO SCH (09:46)
[2018-06-15] MEDS: ENOXAPARIN NA (PORCINE) 40 MG/0.4 ML DISP.SYRIN SQ SCH (09:46)
[2018-06-15] MEDS: FAMOTIDINE 20 MG/50 ML IVPB 20 MG/50 ML MG IVPB SCH (09:46)
--- NOTE | 2018-06-15 12:31 | PN ---
Progress Note (short form) - Note Progress Note: Events noted pain in right knee slightly better with pain meds Vital Signs - 24 hr 06/14/18 06/14/18 06/14/18 19:14 21:00 22:00 Temperature 97.9 F 98.4 F Pulse Rate 73 61 Respiratory 20 20 20 Rate Blood Pressure 101/51 L 109/46 L O2 Sat by Pulse 97 Oximetry (%) 06/15/18 06/15/18 06/15/18 05:43 08:27 09:00 Temperature 98.1 F 98.0 F Pulse Rate 69 67 Respiratory 20 18 Rate Blood Pressure 117/55 L 120/61 O2 Sat by Pulse 97 Oximetry (%) 06/15/18 14:00 Temperature 97.6 F Pulse Rate 71 Respiratory 20 Rate Blood Pressure 111/54 L O2 Sat by Pulse Oximetry (%) S1 S2 RRR Lungs clear Abd- soft, NT slight edema rt leg PLAN Ortho eval noted Zofran for nausea from Morphine Pain control MRI noted-- Meniscal tear --ortho to follow up may need STR Problem List - Problems (1) Knee injury Code(s): S89.90XA - UNSPECIFIED INJURY OF UNSPECIFIED LOWER LEG, INIT ENCNTR (2) DVT prophylaxis Code(s): [id number] - (3) Intractable pain Code(s): R52 - PAIN, UNSPECIFIED (4) Knee sprain and strain Code(s): S83.90XA - SPRAIN OF UNSPECIFIED SITE OF UNSPECIFIED KNEE, INIT ENCNTR Qualifiers: Encounter type: subsequent encounter Laterality: left (5) Severe obesity (BMI >= 40) Code(s): E66.01 - MORBID (SEVERE) OBESITY DUE TO EXCESS CALORIES
[2018-06-15] MEDS: oxyCODONE HCL 5 MG TABLET PO PRN ×2 (17:08→22:44)
[2018-06-15] MEDS ORDERED: SENNOSIDES 8.6MG TABLET (FP) PO PRN (19:29)
[2018-06-15] MEDS: DOCUSATE SODIUM 100 MG CAPSULE (FP) PO PRN (21:07)
--- NOTE | 2018-06-15 22:46 | PN ---
Progress Note (short form) - Note Progress Note: ORTHOPEDIC SURGERY PROGRESS NOTE Department of Orthopedic Surgery SUBJECTIVE No acute events overnight. No complaints currently. Denies chest pain, shortness of breath, or calf pain. No nausea or vomiting. Tolerating oral intake. Pain control difficult overnight, but improving. PHYSICAL EXAMINATION General: Alert, oriented, cooperative and no distress. Right Lower Extremity: Skin warm, dry, and intact; no lesions, rashes or ulcers noted. There is a mild effusion on physical exam. Muscle mass equal and symmetric to contralateral side. No atrophy noted. No masses noted. Tender to palpation at the anteromedial aspect of her knee improved since yesterday; she is nontender throughout rest of extremity. No cords or calf tenderness No significant calf/ankle edema. LROM 0-110 secondary to pain in her knee; FROM of her ankle and hip joints; free from pain. Joints stable with no pathologic laxity. EHL/TA/GS motor intact; SILT distally; 2+ DP pulses; Cap refill brisk. Tone and reflexes normal. DVT Exam: No evidence of DVT seen on physical exam; No cords or calf tenderness ; No significant calf/ankle edema. Intake & Output 06/13/18 06/14/18 06/15/18 23:59 23:59 23:59 Intake Total 250 950 Output Total 300 350 Balance -50 600 Intake: Oral 250 950 Output: Urine 300 350 Void 300 350 Other: Voiding Method Bedpan Bedpan # Unmeasured Voids Void 1 Bowel Movement No No Weight 261 lb Height 5 ft 2 in Body Mass Index (BMI) 47.7 Weight Measurement Method Patient Lift Scale Active Medications Generic Name Dose Route Start Last Admin Trade Name Freq PRN Reason Stop Dose Admin Al Hydroxide/Mg Hydroxide 30 ml 06/14/18 18:24 06/15/18 09:45 Mylanta Oral Suspension - PO 30 ml Q6H PRN Administration DYSPEPSIA Docusate Sodium 100 mg 06/15/18 19:29 06/15/18 21:07 Colace - PO 100 mg Q8H PRN Administration CONSTIPATION Enoxaparin Sodium 40 mg 06/15/18 10:00 06/15/18 09:46 Lovenox - SQ 40 mg DAILY [facility] Administration Hydrochlorothiazide 25 mg 06/15/18 10:00 06/15/18 09:45 Hctz - PO 25 mg DAILY [facility] Administration Famotidine/Sodium Chloride 20 mg in 50 mls @ 100 mls/hr 06/14/18 18:30 09:46 Pepcid 20 Mg Premixed Ivpb - IVPB 100 mls/hr DAILY [facility] Administration Lisinopril 40 mg 06/15/18 10:00 06/15/18 09:46 Prinivil PO 40 mg DAILY [facility] Administration Morphine Sulfate 2 mg 06/14/18 13:54 06/15/18 11:22 Morphine Sulfate IVPUSH 2 mg Q4H PRN Administration PAIN LEVEL 6-10 Ondansetron HCl 4 mg 06/15/18 09:33 06/15/18 09:46 Zofran Injection IVPUSH 4 mg Q6H PRN Administration NAUSEA AND/OR VOMITING Oxycodone HCl 10 mg 06/14/18 13:53 06/15/18 17:08 Roxicodone - PO 10 mg Q6H PRN Administration PAIN LEVEL 4-6 Polyethylene Glycol 17 gm 06/14/18 13:56 06/14/18 18:19 Miralax (For Daily Use) - PO 17 gm DAILY PRN Administration CONSTIPATION Senna 2 tab 06/15/18 19:29 Senna - PO HS PRN CONSTIPATION Vital Signs (last) Temp Pulse Resp BP Pulse Ox 98.2 F 68 18 114/57 L 97 06/15/18 22:00 06/15/18 22:00 06/15/18 22:00 06/15/18 22:00 06/15/18 09:00 Laboratory 06/15/18 06:30 06/15/18 06:30 IMAGING MRI of the right knee demonstrates a medial meniscus root tear, and probable posterior horn tear. No fractures, dislocations, bony lesions seen. ASSESSMENT AND PLAN Ms. Gonzales is a 47 year old female with a right medial meniscus root tear. - Pain control: Transition to oral pain medications, minimize narcotic use - DVT prophylaxis - Ice/Elevation of right knee - Elevate HOB, encourage oral intake - Appreciate medical management (Nutrition optimization, decubitus precautions heel/sacrum) - PT Daily; WBAT RLE - Will likely need surgical intervention as outpatient. Please have patient follow up in the office within 1-2 weeks after discharge. - No further current orthopedic intervention at this time. - Dispo planning Thank you for involving us in the care of your patient. Please call with any questions. Jude Anderson, DO Orthopedic Surgery
[2018-06-16] MEDS: oxyCODONE HCL 5 MG TABLET PO PRN (06:20)
[2018-06-16] MEDS: ONDANSETRON 4 MG/2 ML VIAL IVPUSH PRN (07:46)
[2018-06-16] MEDS: DOCUSATE SODIUM 100 MG CAPSULE (FP) PO PRN (10:05)
[2018-06-16] MEDS: POLYETHYLENE GLYCOL 3350 119 GM BTL PO PRN (10:05)
[2018-06-16] MEDS: FAMOTIDINE 20 MG/50 ML IVPB 20 MG/50 ML MG IVPB SCH (10:06)
[2018-06-16] MEDS: HYDROCHLOROTHIAZIDE 25 MG TABLET (FP) PO SCH (10:06)
[2018-06-16] MEDS: ENOXAPARIN NA (PORCINE) 40 MG/0.4 ML DISP.SYRIN SQ SCH (10:07)
[2018-06-16] MEDS: LISINOPRIL 20 MG TABLET (FP) PO SCH (10:08)
--- NOTE | 2018-06-16 11:51 | DS ---
Physical Examination Vital Signs: Vital Signs Temperature 97.8 F 06/16/18 05:49 Pulse Rate 61 06/16/18 05:49 Respiratory Rate 18 06/16/18 05:49 Blood Pressure 104/55 L 06/16/18 05:49 O2 Sat by Pulse Oximetry (%) 96 06/15/18 21:00 Constitutional: Yes: No Distress, Calm Cardiovascular: Yes: Regular Rate and Rhythm Respiratory: Yes: CTA Bilaterally Gastrointestinal: Yes: Normal Bowel Sounds, Soft, Abdomen, Obese. No: Tenderness Edema: No Labs: CBC, BMP 06/15/18 06:30 06/15/18 06:30 Discharge Summary Reason For Visit: INTRACTABLE PAIN,SPRAIN OF KNEE,UNABLE TO WALK Current Active Problems Knee injury (Acute) Hospital Course: Admitting history-- 06/14/18 10:46 The patient is a 47-year-old female, with a past medical history of HTN, chronic left knee pain (receives injections), severe obesity, who presents to the ED with 2 weeks of RT knee pain. Patient states that her pain worsened today after her knee gave out and she heard a popping sound. She reports that the pain radiates up her thigh. She denies any direct trauma to the knee. The patient was seen in the ED last year for LT knee pain and followed up with Dr. Vera who administered a cortisone injection. She denies any back pain. The patient denies any fevers, chills, nausea, vomiting, diarrhea, or abdominal pain. Denies any chest pain or shortness of breath. Allergies: Shellfish derived. Social History: None reported. Surgical History: None reported. PCP: Dr. Ad Titus Pt examined by me in the ER Family at bedside Pt c/o 3 days h/o rt knee warmth and pain , worse today after she heard a popping sound in rt knee when she was climbing the stairs Denies fall She has h/o chronic left knee pain and was advised to lose weight Rt knee pain is radiating the rt hip Admitted for intractable right knee pain She was climbing stairs when she heard a popping sound Sono leg -- negative for DVT was evaluated by Ortho--Dr Anderson-- MRI -- meniscus tear Pt will need STR and afterwards advised to follow up with Ortho as outpt for possible surgery Per Ortho-- Ms. Gonzales is a 47 year old female with a right medial meniscus root tear. - Pain control: Transition to oral pain medications, minimize narcotic use - DVT prophylaxis - Ice/Elevation of right knee - Elevate HOB, encourage oral intake - Appreciate medical management (Nutrition optimization, decubitus precautions heel/sacrum) - PT Daily; WBAT RLE - Will likely need surgical intervention as outpatient. Please have patient follow up in the office within 1-2 weeks after discharge. - No further current orthopedic intervention at this time. - Dispo planning stable for dc to SR on pain control Time spent for preparing discharge -- 40 min - Instructions Diet, Activity, Other Instructions: Ms. Gonzales is a 47 year old female with a right medial meniscus root tear. - Pain control: Transition to oral pain medications, minimize narcotic use - DVT prophylaxis - Ice/Elevation of right knee - Elevate HOB, encourage oral intake - Appreciate medical management (Nutrition optimization, decubitus precautions heel/sacrum) - PT Daily; WBAT RLE - Will likely need surgical intervention as outpatient. Please have patient follow up in the office within 1-2 weeks after discharge. - No further current orthopedic intervention at this time. - Dispo planning Referrals: Ad Titus MD [Primary Care Provider] - Jude Anderson DO [Staff Physician] - Disposition: RETIREMENT FACILITY - Home Medications Comprehensive Discharge Medication List: Ambulatory Orders Hydrochlorothiazide [Hctz -] 25 mg PO DAILY 08/05/17 Lisinopril [Prinivil -] 40 mg PO DAILY 08/05/17 Oxycodone HCl 10 mg PO Q6H PRN #30 tablet MDD 4 08/05/17 Ibuprofen [Ibu] 800 mg PO ASDIR 06/14/18
[2018-06-16] MEDS ORDERED: BISACODYL 5 MG TABLET.DR (FP) PO PRN (12:17)
[2018-06-16] MEDS: MORPHINE SULFATE 2 MG/ML VIAL IVPUSH PRN (15:53)
[2018-06-17] MEDS: MORPHINE SULFATE 2 MG/ML VIAL IVPUSH PRN ×3 (00:27→16:25)
[2018-06-17] MEDS: FAMOTIDINE 20 MG/50 ML IVPB 20 MG/50 ML MG IVPB SCH (09:15)
[2018-06-17] MEDS: LISINOPRIL 20 MG TABLET (FP) PO SCH (09:15)
[2018-06-17] MEDS: ENOXAPARIN NA (PORCINE) 40 MG/0.4 ML DISP.SYRIN SQ SCH (09:16)
[2018-06-17] MEDS: HYDROCHLOROTHIAZIDE 25 MG TABLET (FP) PO SCH (09:16)
[2018-06-17] MEDS: MAG HYDROX/AL HYDROX/SIMETH 30 ML UNIT-DOSE CUP PO PRN (09:16)
--- NOTE | 2018-06-17 12:01 | PN ---
Progress Note (short form) - Note Progress Note: pt seen/ examined chart reviewed awake/ comfortable. reports pain better. Vital Signs Temp 98.1 F 06/17/18 09:36 Pulse 64 06/17/18 09:36 Resp 18 06/17/18 09:36 BP 93/57 L 06/17/18 09:36 Pulse Ox 96 06/17/18 09:00 Intake & Output 06/16/18 06/17/18 06/17/18 23:59 11:59 23:59 Intake Total 700 30 Balance 700 30 Intake: Oral 700 30 Other: Voiding Method Bedside Commode Bedside Commode # Unmeasured Voids Void 1 Bowel Movement No No Active Medications Al Hydroxide/Mg Hydroxide (Mylanta Oral Suspension -) 30 ml PO Q6H PRN PRN Reason: DYSPEPSIA Last Admin: 06/17/18 09:16 Dose: 30 ml Bisacodyl (Dulcolax -) 5 mg PO Q24H PRN PRN Reason: CONSTIPATION Docusate Sodium (Colace -) 100 mg PO Q8H PRN PRN Reason: CONSTIPATION Last Admin: 06/16/18 10:05 Dose: 100 mg Enoxaparin Sodium (Lovenox -) 40 mg SQ DAILY [facility] Last Admin: 06/17/18 09:16 Dose: 40 mg Hydrochlorothiazide (Hctz -) 25 mg PO DAILY [facility] Last Admin: 06/17/18 09:16 Dose: 25 mg Famotidine/Sodium Chloride (Pepcid 20 Mg Premixed Ivpb -) 20 mg in 50 mls @ 100 mls/hr IVPB DAILY [facility] Last Admin: 06/17/18 09:15 Dose: 100 mls/hr Lisinopril (Prinivil) 40 mg PO DAILY [facility] Last Admin: 06/17/18 09:15 Dose: 40 mg Morphine Sulfate (Morphine Sulfate) 2 mg IVPUSH Q4H PRN PRN Reason: PAIN LEVEL 6-10 Last Admin: 06/17/18 08:20 Dose: 2 mg Ondansetron HCl (Zofran Injection) 4 mg IVPUSH Q6H PRN PRN Reason: NAUSEA AND/OR VOMITING Last Admin: 06/16/18 07:46 Dose: 4 mg Oxycodone HCl (Roxicodone -) 10 mg PO Q6H PRN PRN Reason: PAIN LEVEL 4-6 Last Admin: 06/16/18 06:20 Dose: 10 mg Polyethylene Glycol (Miralax (For Daily Use) -) 17 gm PO DAILY PRN PRN Reason: CONSTIPATION Last Admin: 06/16/18 10:05 Dose: 17 gm Senna (Senna -) 2 tab PO HS PRN PRN Reason: CONSTIPATION CBC, BMP 06/15/18 06:30 06/15/18 06:30 Physical Exam S1 S2 RRR Lungs clear Abd- soft, NT slight edema rt leg-- Brace PLAN Ortho eval noted Zofran for nausea from Morphine Pain control MRI noted-- Meniscal tear -- Awaiting d/c to str
[2018-06-17 14:02] VITALS: PULSE 73
[2018-06-17] MEDS: DOCUSATE SODIUM 100 MG CAPSULE (FP) PO PRN (16:53)
[2018-06-17 18:43] VITALS: BP 103/57; TEMP 98.2
== END 2018-06-17 19:07 | DRG 342 ==
LOC: JER 09:13 → JERBED 13:29 → J7W 15:32
PROVIDERS: ADMIT Internal Medicine; ATTEND Internal Medicine
PROC: 2W3LX3Z Immobilization of Right Lower Extremity using Brace (ICD-10-PCS; principal; 2018-06-14)
DX: S83.241A Other tear of medial meniscus, current injury, right knee, initial encounter (principal); E66.01 Morbid (severe) obesity due to excess calories; Z68.42 Body mass index [BMI] 45.0-49.9, adult; I10 Essential (primary) hypertension; F17.210 Nicotine dependence, cigarettes, uncomplicated; S83.92XA Sprain of unspecified site of left knee, initial encounter; X50.0XXA Overexertion from strenuous movement or load, initial encounter; Y93.89 Activity, other specified; Y92.89 Other specified places as the place of occurrence of the external cause; Y99.8 Other external cause status
CPT/HCPCS: 36415; 73562-TC-RT-FY; 73721-RT-TC; 80053; 84703; 85025; 93971-TC; 97116-GP; 97162-GP; 99283-25

== ENCOUNTER 2020-03-08 09:56 | Emergency (ER) | payer OTHER ==
[2020-03-08 10:25] VITALS: BMI 54.8
[2020-03-08] MEDS ORDERED: morphine SULFATE 4 MG/ML VIAL ONE ×2 (10:34→13:02)
[2020-03-08] MEDS ORDERED: morphine CARPU-JECT 4 MG/1 ML DISP.SYRIN IM ONE (10:55)
[2020-03-08 11:35] LABS: BASO % 0.8 % (0-2.0); EOS % 0.7 % (0-4.5); HEMATOCRIT 40.9 % (32.4-45.2); HEMOGLOBIN 13.7 GM/dL (10.7-15.3); LYMPH % 18.2 % (8-40); MCH 28.5 pg (25.7-33.7); MCHC 33.5 g/dl (32.0-36.0); MEAN CELL VOLUME 85.1 fl (80-96); MEAN PLT VOLUME 9.4 fl (7.5-11.1); NEUT % 75.3 % (42.8-82.8); PLATELET COUNT 355 K/MM3 (134-434); WHITE BLOOD COUNT 12.8 K/mm3 (4.0-10.0)
[2020-03-08 11:40] LABS: CHLORIDE 106 mmol/L (98-107); POTASSIUM 4.4 mmol/L (3.5-5.1); SODIUM 139 mmol/L (136-145)
[2020-03-08 11:42] LABS: CALCIUM 9.5 mg/dL (8.5-10.1)
[2020-03-08 11:44] LABS: ALBUMIN 3.8 g/dl (3.4-5.0); ANION GAP 8 MMOL/L (8-16); CO2 25 mmol/L (21-32); GLUCOSE,RANDOM 125 mg/dL (74-106); INR 1.11 (0.83-1.09); PROTHROMBIN TIME (PATIENT) 13.4 SEC (9.7-13.0)
[2020-03-08 11:46] LABS: CREATININE 0.8 mg/dL (0.55-1.3); SGOT/AST 42 U/L (15-37); SGPT/ALT 33 U/L (13-61)
[2020-03-08 11:48] LABS: BILIRUBIN,TOTAL 0.5 mg/dL (0.2-1); TOT PROT 7.8 g/dl (6.4-8.2)
[2020-03-08 11:50] LABS: ALK PHOS 89 U/L (45-117)
[2020-03-08] MEDS ORDERED: SODIUM CHLORIDE 1,000 ML IV STA (12:37)
[2020-03-08] MEDS ORDERED: ACETAMINOPHEN 1000 MG/100 ML VIAL (NON FORMULARY) IVPB ONE (12:56)
[2020-03-08] MEDS ORDERED: ONDANSETRON 4 MG/2 ML VIAL IVPUSH ONE (12:56)
[2020-03-08] MEDS ORDERED: morphine CARPU-JECT 4 MG/1 ML DISP.SYRIN IVPUSH ONE ×2 (12:56→12:58)
[2020-03-08] MEDS ORDERED: ACETAMINOPHEN INJECTION 100 ML IVPB ONE (13:02)
[2020-03-08 13:09] LABS: EPI CELLS 29 /uL (0-25.1); HYALINE CASTS 1 /uL (0-3.1); PH,URINE 6.5 (5.0-8.0); URINE APPEARANCE CLEAR; URINE BACTERIA 846 /uL (0-1359); URINE BILIRUBIN NEGATIVE (NEGATIVE); URINE COLOR YELLOW; URINE GLUCOSE (UA) NEGATIVE (NEGATIVE); URINE KETONE NEGATIVE (NEGATIVE); URINE LEUK ESTERASE TRACE (NEGATIVE); URINE NITRITE NEGATIVE (NEGATIVE); URINE PROTEIN NEGATIVE (NEGATIVE); URINE RBC 10 /uL (0-23.9); URINE UROBILINOGEN 0.2 mg/dL (0.2-1.0); URINE WBC 49 /uL (0-25.8)
[2020-03-08] MEDS ORDERED: METOCLOPRAMIDE HCL INJECTION 10 MG/2 ML VIAL IVPB ONE (14:24)
[2020-03-08] MEDS ORDERED: METOCLOPRAMIDE HCL INJECTION 10 MG/2 ML VIAL ONE (14:28)
[2020-03-08 15:29] VITALS: BP 92/52; PULSE 62; TEMP 98
== END 2020-03-08 15:38 | disposition short-term general hospital (02) ==
LOC: JER 09:56
PROC: 3E0333Z Introduction of Anti-inflammatory into Peripheral Vein, Percutaneous Approach (ICD-10-PCS; principal; 2020-03-08)
PROC: 3E033GC Introduction of Other Therapeutic Substance into Peripheral Vein, Percutaneous Approach (ICD-10-PCS; 2020-03-08)
PROC: 3E033GC Introduction of Other Therapeutic Substance into Peripheral Vein, Percutaneous Approach (ICD-10-PCS; 2020-03-08)
PROC: 3E033GC Introduction of Other Therapeutic Substance into Peripheral Vein, Percutaneous Approach (ICD-10-PCS; 2020-03-08)
PROC: 3E023NZ Introduction of Analgesics, Hypnotics, Sedatives into Muscle, Percutaneous Approach (ICD-10-PCS; 2020-03-08)
PROC: 3E0337Z Introduction of Electrolytic and Water Balance Substance into Peripheral Vein, Percutaneous Approach (ICD-10-PCS; 2020-03-08)
DX: L98.0 Pyogenic granuloma (principal)
CPT/HCPCS: 36415; 70450-TC; 71260-TC; 72125-TC; 72132-TC; 73030-TC-LT-FY; 73560-TC-LT-FY; 74177-TC; 80053; 81003; 82550; 84484; 84703; 85025; 85610; 93005; 93010; 99285-25; J0131; Q9967

== ENCOUNTER 2022-09-27 00:24 | Emergency (ER) | payer OTHER ==
[2022-09-27 00:45] VITALS: BP 140/79; PULSE 99; RESP 20; TEMP 98.5; BMI 49.7
[2022-09-27] MEDS ORDERED: morphine CARPU-JECT 2 MG/1 ML DISP.SYRIN IVPUSH ONE (00:59)
[2022-09-27] MEDS ORDERED: DIPHTH,PERTUSS(ACELL),TET 0.5 ML DISP.SYRIN IM ONE ×2 (01:02→01:18)
[2022-09-27 01:51] LABS: BASO % 0.4 % (0-2.0); EOS % 2.4 % (0-4.5); HEMATOCRIT 41.8 % (32.4-45.2); HEMOGLOBIN 13.5 GM/dL (10.7-15.3); LYMPH % 30.4 % (8-40); MCH 28.2 pg (25.7-33.7); MCHC 32.4 g/dl (32.0-36.0); MEAN CELL VOLUME 87.1 fl (80-96); MEAN PLT VOLUME 8.5 fl (7.5-11.1); MONO % 6.5 % (3.8-10.2); NEUT % 60.3 % (42.8-82.8); PLATELET COUNT 269 10^3/uL (134-434); RBC 4.79 M/mm3 (3.60-5.2); RDW 13.1 % (11.6-15.6); WHITE BLOOD COUNT 14.5 K/mm3 (4.0-10.0)
[2022-09-27 01:56] LABS: POTASSIUM 5.1 mmol/L (3.5-5.1)
[2022-09-27 01:59] LABS: CALCIUM 9.7 mg/dL (8.5-10.1)
[2022-09-27 02:00] LABS: ALBUMIN 3.6 g/dl (3.4-5.0); BLOOD UREA NITROGEN 21.1 mg/dL (7-18)
[2022-09-27 02:02] LABS: CREATININE 0.9 mg/dL (0.55-1.3)
[2022-09-27 02:03] LABS: BILIRUBIN,TOTAL 0.5 mg/dL (0.2-1)
[2022-09-27 02:04] LABS: TOT PROT 7.6 g/dl (6.4-8.2)
[2022-09-27] MEDS ORDERED: LIDOCAINE 1%/EPI 1:100000 (50 ML MULTI DOSE VIAL) ONE (03:10)
[2022-09-27] MEDS ORDERED: TETANUS IMMUNE GLOBULIN 250 UNITS DISP.SYRIN IM ONE (03:19)
[2022-09-27] MEDS ORDERED: KETOROLAC TROMETHAMINE 15 MG/ML VIAL IVPUSH ONE (04:58)
[2022-09-27] MEDS ORDERED: KETOROLAC TROMETHAMINE 15 MG/ML VIAL ONE (04:59)
[2022-09-27] MEDS ORDERED: AMOX TR/POT CLAV 875MG/125MG TABLETS (FP) PO ONE (06:07)
[2022-09-27] MEDS ORDERED: AMOX TR/POT CLAV 875MG/125MG TABLETS (FP) ONE (06:39)
== END 2022-09-27 06:52 | disposition home or self-care (01) ==
LOC: JER 00:24
PROC: 2W3EX1Z Immobilization of Right Hand using Splint (ICD-10-PCS; principal; 2022-09-27)
PROC: 0HQEXZZ Repair Left Lower Arm Skin, External Approach (ICD-10-PCS; 2022-09-27)
PROC: 3E0333Z Introduction of Anti-inflammatory into Peripheral Vein, Percutaneous Approach (ICD-10-PCS; 2022-09-27)
PROC: 3E033GC Introduction of Other Therapeutic Substance into Peripheral Vein, Percutaneous Approach (ICD-10-PCS; 2022-09-27)
PROC: 3E0234Z Introduction of Serum, Toxoid and Vaccine into Muscle, Percutaneous Approach (ICD-10-PCS; 2022-09-27)
DX: S62.302A Unspecified fracture of third metacarpal bone, right hand, initial encounter for closed fracture (principal); S51.012A Laceration without foreign body of left elbow, initial encounter; M79.602 Pain in left arm; M79.641 Pain in right hand; M79.642 Pain in left hand; W10.8XXA Fall (on) (from) other stairs and steps, initial encounter
CPT/HCPCS: 12001-25; 29125; 36415; 73030-TC-LT-FY; 73070-TC-LT-FY; 73090-TC-LT-FY; 73110-TC-LT-FY; 73110-TC-RT-FY; 73130-TC-LT-FY; 73130-TC-RT-FY; 80053; 84703; 85025; 86850; 86900; 86901; 90471; 90715; 96374; 96375; 99284-25